=== PATIENT | male | born 1965 | race Two or more races ===

== ENCOUNTER 2016-07-29 19:11 | Emergency (ER) | payer BC ==
--- NOTE | 2016-07-29 20:27 | ED ---
General Adult HPI - General Chief complaint: Dizziness Stated complaint: dizziness/SOB Time Seen by Provider: 07/29/16 19:54 Source: patient, RN notes reviewed, old records reviewed Mode of arrival: ambulatory Limitations: no limitations - History of Present Illness Initial comments: This is a 51-year-old male the ER for evaluation of a few complaints. Patient when he of dizziness palpitations, PVCs and the room spinning around. Patient' s history of high blood pressure, history of PVCs. Patient has been taking all medication as prescribed, neither chest pain or source of breath or congestion, some upper respiratory symptoms and sinus fullness, patient feels a current sinus infection. Again denies fevers no travel history or sick contacts. No significant headaches. No change in medication. Denies drugs or on-call. Patient states a couple times the past week he's does palpitations and PVCs lasting up to 30 seconds, patient is also noticed that during specific times the room has been spinning around, it does resolve if he sits down and closes his eyes. - Related Data Home Medications Medication Instructions Recorded Confirmed B-12 1 ml INJ DIRECTED 12/06/13 07/29/16 Thyroid,Pork [[place] Thyroid] 15 mg PO DIRECTED 12/06/13 07/29/16 Thyroid,Pork [[place] Thyroid] 90 mg PO DAILY 12/06/13 07/29/16 Fluticasone Nasal [place] [Flonase 1 spray EA NOSTRIL HS 07/29/16 07/29/16 Nasal [place]] Hydrochlorothiazide [Hydrodiuril] 25 mg PO DAILY 07/29/16 07/29/16 Loratadine [Claritin] 5 mg PO DAILY 07/29/16 07/29/16 Testosterone [Axiron] 30 mg TRANSDERM MOTH 07/29/16 07/29/16 diphenhydrAMINE HCL [Benadryl] 25 mg PO HS 07/29/16 07/29/16 Allergies Allergy/AdvReac Type Severity Reaction Status Date / Time codeine Allergy Confusion Verified 07/29/16 20:11 metronidazole [From Flagyl] Allergy Hallucinati Verified 07/29/16 20:11 ons Penicillins Allergy Unknown Verified 07/29/16 20:11 Childhood Review of Systems ROS Statement: Those systems with pertinent positive or pertinent negative responses have been documented in the HPI. ROS Other: All systems not noted in ROS Statement are negative. Past Medical History Past Medical History: Blood Disorder, Hypertension, Thyroid Disorder History of Any Multi-Drug Resistant Organisms: None Reported Past Surgical History: Cholecystectomy Past Psychological History: No Psychological Hx Reported Smoking Status: Never smoker Past Alcohol Use History: None Reported Past Drug Use History: None Reported General Exam Limitations: no limitations General appearance: alert, in no apparent distress Head exam: Present: atraumatic, normocephalic, normal inspection Eye exam: Present: normal appearance, PERRL, EOMI, nystagmus (Mild to the right) . Absent: scleral icterus, conjunctival injection, periorbital swelling ENT exam: Present: normal exam, mucous membranes moist Neck exam: Present: normal inspection. Absent: tenderness, meningismus, lymphadenopathy Respiratory exam: Present: normal lung sounds bilaterally. Absent: respiratory distress, wheezes, rales, rhonchi, stridor Cardiovascular Exam: Present: regular rate, normal rhythm, normal heart sounds. Absent: systolic murmur, diastolic murmur, rubs, gallop, clicks GI/Abdominal exam: Present: soft, normal bowel sounds. Absent: distended, tenderness, guarding, rebound, rigid Extremities exam: Present: normal inspection, full ROM, normal capillary refill. Absent: tenderness, pedal edema, joint swelling, calf tenderness Back exam: Present: normal inspection Neurological exam: Present: alert, oriented X3, CN II-XII intact Psychiatric exam: Present: normal affect, normal mood Skin exam: Present: warm, dry, intact, normal color. Absent: rash Course Vital Signs 07/29/16 07/29/16 07/29/16 19:41 20:45 21:45 Temperature 98.2 F Pulse Rate 73 64 67 Respiratory 18 20 20 Rate Blood Pressure 155/108 142/65 128/64 O2 Sat by Pulse 98 97 99 Oximetry 07/29/16 07/29/16 22:44 23:10 Temperature 98.3 F Pulse Rate 81 83 Respiratory 20 20 Rate Blood Pressure 143/89 120/56 O2 Sat by Pulse 99 99 Oximetry EKG Findings - EKG Comments: EKG Findings:: EKG shows normal sinus or mastoid 1, WA 154, QRS 92, QTC 423 Medical Decision Making - Medical Decision Making 51 year with symptoms of vertigo and dizziness, also PVCs. Symptoms appear to be unrelated, patient's EKG is normal, no significant PVCs or here in the emergency room. Patient's neurological exam is also normal, no cerebellar deficits, patient will be discharged home asymptomatic - Lab Data Result diagrams: 07/29/16 20:32 07/29/16 20:32 Lab Results 07/29/16 07/29/16 07/29/16 Range/Units 20:32 20:32 20:32 WBC 5.7 (3.8-10.6) k/uL RBC 5.69 (4.30-5.90) m/uL Hgb 17.1 (13.0-17.5) gm/dL Hct 49.0 (39.0-53.0) % MCV 86.0 (80.0-100.0) fL MCH 30.0 (25.0-35.0) pg MCHC 34.8 (31.0-37.0) g/dL RDW 12.7 (11.5-15.5) % Plt Count 210 (150-450) k/uL Neutrophils % 53 % Lymphocytes % 35 % Monocytes % 6 % Eosinophils % 2 % Basophils % 1 % Neutrophils # 3.0 (1.3-7.7) k/uL Lymphocytes # 2.0 (1.0-4.8) k/uL Monocytes # 0.3 (0-1.0) k/uL Eosinophils # 0.1 (0-0.7) k/uL Basophils # 0.0 (0-0.2) k/uL PT (9.0-12.0) sec INR (<1.1) APTT (22.0-30.0) sec Sodium 141 (137-145) mmol/L Potassium 4.2 (3.5-5.1) mmol/L Chloride 98 (98-107) mmol/L Carbon Dioxide 31 H (22-30) mmol/L Anion Gap 12 mmol/L BUN 14 (9-20) mg/dL Creatinine 1.18 (0.66-1.25) mg/dL Est GFR (MDRD) Af Amer >60 (>60 ml/min/1.73 sqM) Est GFR (MDRD) Non-Af >60 (>60 ml/min/1.73 sqM) Glucose 94 (74-99) mg/dL Calcium 9.6 (8.4-10.2) mg/dL Phosphorus 3.8 (2.5-4.5) mg/dL Magnesium 2.1 (1.6-2.3) mg/dL Total Bilirubin 0.8 (0.2-1.3) mg/dL AST 27 (17-59) U/L ALT 45 (21-72) U/L Alkaline Phosphatase 70 (38-126) U/L Total Creatine Kinase 105 (55-170) U/L CK-MB (CK-2) 2.0 (0.0-2.4) ng/mL CK-MB (CK-2) Rel Index 1.9 Troponin I <0.012 (0.000-0.034) ng/mL Total Protein 7.8 (6.3-8.2) g/dL Albumin 4.7 (3.5-5.0) g/dL TSH 14.700 H (0.465-4.680) mIU/L 07/29/16 Range/Units 20:32 WBC (3.8-10.6) k/uL RBC (4.30-5.90) m/uL Hgb (13.0-17.5) gm/dL Hct (39.0-53.0) % MCV (80.0-100.0) fL MCH (25.0-35.0) pg MCHC (31.0-37.0) g/dL RDW (11.5-15.5) % Plt Count (150-450) k/uL Neutrophils % % Lymphocytes % % Monocytes % % Eosinophils % % Basophils % % Neutrophils # (1.3-7.7) k/uL Lymphocytes # (1.0-4.8) k/uL Monocytes # (0-1.0) k/uL Eosinophils # (0-0.7) k/uL Basophils # (0-0.2) k/uL PT 10.5 (9.0-12.0) sec INR 1.0 (<1.1) APTT 25.8 (22.0-30.0) sec Sodium (137-145) mmol/L Potassium (3.5-5.1) mmol/L Chloride (98-107) mmol/L Carbon Dioxide (22-30) mmol/L Anion Gap mmol/L BUN (9-20) mg/dL Creatinine (0.66-1.25) mg/dL Est GFR (MDRD) Af Amer (>60 ml/min/1.73 sqM) Est GFR (MDRD) Non-Af (>60 ml/min/1.73 sqM) Glucose (74-99) mg/dL Calcium (8.4-10.2) mg/dL Phosphorus (2.5-4.5) mg/dL Magnesium (1.6-2.3) mg/dL Total Bilirubin (0.2-1.3) mg/dL AST (17-59) U/L ALT (21-72) U/L Alkaline Phosphatase (38-126) U/L Total Creatine Kinase (55-170) U/L CK-MB (CK-2) (0.0-2.4) ng/mL CK-MB (CK-2) Rel Index Troponin I (0.000-0.034) ng/mL Total Protein (6.3-8.2) g/dL Albumin (3.5-5.0) g/dL TSH (0.465-4.680) mIU/L Disposition Clinical Impression: Vertigo, PVC (premature ventricular contraction) Disposition: HOME SELF-CARE Condition: Good Instructions: Vertigo (ED), Premature Ventricular Contractions (ED) Referrals: Danielle Valencia MD [Primary Care Provider] - 1-2 days
[2016-07-29] MEDS ORDERED: SODIUM CHLORIDE 0.9% 1,000 ML IV STA (21:15)
[2016-07-29 21:32] LABS: Basophils % (A) 1 %; CH 30.8; CHCM 35.9; Eosinophils # (A) 0.1 k/uL (0-0.7); Eosinophils % (A) 2 %; HGB 17.1 gm/dL (13.0-17.5); Luc # (Auto) 0.24; Luc % (Auto) 4; Lymphocytes % (A) 35 %; MCHC 34.8 g/dL (31.0-37.0); Mean Platelet Volume 7.5; Monocytes # (A) 0.3 k/uL (0-1.0); Monocytes % (A) 6 %; Neutrophils % (A) 53 %; RBC 5.69 m/uL (4.30-5.90); RDW 12.7 % (11.5-15.5); WBC 5.7 k/uL (3.8-10.6); WBC (Perox) 5.65
[2016-07-29 21:42] LABS: Partial Thromboplastin Time 25.8 sec (22.0-30.0); Prothrombin Time 10.5 sec (9.0-12.0)
[2016-07-29 21:43] LABS: ALT 45 U/L (21-72); AST 27 U/L (17-59); Alkaline Phosphatase 70 U/L (38-126); Anion Gap 12 mmol/L; Blood Urea Nitrogen 14 mg/dL (9-20); Calcium 9.6 mg/dL (8.4-10.2); Carbon Dioxide 31 mmol/L (22-30); Chloride 98 mmol/L (98-107); Glucose 94 mg/dL (74-99); Magnesium 2.1 mg/dL (1.6-2.3); Non-African American GFR(MDRD) >60 (>60 ml/min/1.73 sqM); Phosphorous 3.8 mg/dL (2.5-4.5); Potassium 4.2 mmol/L (3.5-5.1); Sodium 141 mmol/L (137-145); Total Bilirubin 0.8 mg/dL (0.2-1.3); Total Protein 7.8 g/dL (6.3-8.2)
[2016-07-29 22:09] LABS: Creatine Kinase 105 U/L (55-170)
[2016-07-29 22:22] LABS: Troponin I <0.012 ng/mL (0.000-0.034)
[2016-07-29 22:44] VITALS: RESP 20
[2016-07-29 23:13] VITALS: BP 120/56; PULSE 83; TEMP 98.3
== END 2016-07-29 23:10 | disposition home or self-care (01) ==
LOC: EC 19:11
DX: I49.3 Ventricular premature depolarization (principal); R42 Dizziness and giddiness; I10 Essential (primary) hypertension; E07.9 Disorder of thyroid, unspecified; Z79.899 Other long term (current) drug therapy; Z88.0 Allergy status to penicillin; Z88.1 Allergy status to other antibiotic agents; Z88.5 Allergy status to narcotic agent
CPT/HCPCS: 36415; 80053; 82550; 82553; 83735; 84100; 84443; 84484; 85025; 85610; 85730; 93005; 96360; 99284

== ENCOUNTER 2016-08-09 17:43 | Emergency (ER) | payer BC ==
[2016-08-09] MEDS ORDERED: SODIUM CHLORIDE 0.9% 1,000 ML IV STA (18:51)
[2016-08-09] MEDS ORDERED: SODIUM CHLORIDE 0.9% 500 ML IV STA (18:51)
--- NOTE | 2016-08-09 18:56 | ED ---
Arrhythmia/Palpitations HPI - General Chief Complaint: Arrhythmia/Palpitations Stated Complaint: NAUSEA, HYPERTENSION, FEELING WEAK, NECK PAIN Time Seen by Provider: 08/09/16 18:51 Source: patient Mode of arrival: wheelchair Limitations: no limitations - History of Present Illness Initial Comments: This is a 51-year-old male who presents with complaints of the onset around 4: 30 this afternoon of a racing heart. He did have elevated heart rate. Got up as high as 145-160. He felt lightheaded and nauseated and sweaty and felt like he was screaming as well as the bathroom. He recently was evaluated for vertigo. He does have a history of thyroid disease and was recently placed on higher levels of his medication. He denies any overt chest pain fevers chills. He also states that he had the slight headache earlier when the symptoms began MD Complaint: rapid heart beat, "heart racing" - Related Data Home Medications Medication Instructions Recorded Confirmed Fluticasone Nasal [place] [Flonase 1 spray EA NOSTRIL BID 07/29/16 08/09/16 Nasal [place]] Testosterone [Axiron] 30 mg TRANSDERM MOTH 07/29/16 08/09/16 Meclizine [Antivert] 25 mg PO TID PRN 08/09/16 08/09/16 Triamterene-Hctz 37.5-25Mg 1 cap PO MOWEFR 08/09/16 08/09/16 [Dyazide 37.5-25 Capsule] predniSONE See Taper PO DAILY 08/09/16 08/09/16 Allergies Allergy/AdvReac Type Severity Reaction Status Date / Time codeine Allergy Confusion Verified 08/09/16 18:53 metronidazole [From Flagyl] Allergy Hallucinati Verified 08/09/16 18:53 ons Penicillins Allergy Unknown Verified 08/09/16 18:53 Childhood Review of Systems ROS Statement: Those systems with pertinent positive or pertinent negative responses have been documented in the HPI. ROS Other: All systems not noted in ROS Statement are negative. Past Medical History Past Medical History: Blood Disorder, Hypertension, Thyroid Disorder History of Any Multi-Drug Resistant Organisms: None Reported Past Surgical History: Cholecystectomy Past Psychological History: No Psychological Hx Reported Smoking Status: Never smoker Past Alcohol Use History: None Reported Past Drug Use History: None Reported General Exam - General Exam Comments Initial Comments: This is a well-developed well-nourished awake alert oriented times 3 male Limitations: no limitations General appearance: alert, in no apparent distress Head exam: Present: atraumatic, normocephalic, normal inspection Eye exam: Present: normal appearance, PERRL, EOMI. Absent: scleral icterus, conjunctival injection, periorbital swelling ENT exam: Present: normal exam, mucous membranes moist Neck exam: Present: normal inspection. Absent: tenderness, meningismus, lymphadenopathy Respiratory exam: Present: normal lung sounds bilaterally. Absent: respiratory distress, wheezes, rales, rhonchi, stridor Cardiovascular Exam: Present: normal rhythm, tachycardia, normal heart sounds. Absent: systolic murmur, diastolic murmur, rubs, gallop, clicks GI/Abdominal exam: Present: soft, normal bowel sounds. Absent: distended, tenderness, guarding, rebound, rigid Extremities exam: Present: normal inspection, full ROM, normal capillary refill. Absent: tenderness, pedal edema, joint swelling, calf tenderness Back exam: Present: normal inspection Neurological exam: Present: alert, oriented X3, CN II-XII intact Psychiatric exam: Present: normal affect, normal mood Skin exam: Present: warm, dry, intact, normal color. Absent: rash Course Vital Signs 08/09/16 08/09/16 08/09/16 18:03 19:07 19:17 Temperature 97.4 F L Pulse Rate 107 H 107 H Pulse Rate [ 112 H Right Radial] Respiratory 17 18 Rate Blood Pressure 160/100 146/95 O2 Sat by Pulse 99 98 Oximetry Medical Decision Making - Medical Decision Making I did reevaluate patient several occasions feeling much improved his heart rate has improved. He will be discharged he is follow-up with his doctor return when necessary - Lab Data Result diagrams: 08/09/16 18:54 08/09/16 18:54 Lab Results 08/09/16 08/09/16 08/09/16 Range/Units 18:54 18:54 18:54 WBC (3.8-10.6) k/uL RBC (4.30-5.90) m/uL Hgb (13.0-17.5) gm/dL Hct (39.0-53.0) % MCV (80.0-100.0) fL MCH (25.0-35.0) pg MCHC (31.0-37.0) g/dL RDW (11.5-15.5) % Plt Count (150-450) k/uL Neutrophils % % Lymphocytes % % Monocytes % % Eosinophils % % Basophils % % Neutrophils # (1.3-7.7) k/uL Lymphocytes # (1.0-4.8) k/uL Monocytes # (0-1.0) k/uL Eosinophils # (0-0.7) k/uL Basophils # (0-0.2) k/uL PT 10.3 (9.0-12.0) sec INR 1.0 (<1.1) APTT 23.3 (22.0-30.0) sec D-Dimer <0.17 (<0.60) mg/L FEU Sodium 141 (137-145) mmol/L Potassium 4.8 (3.5-5.1) mmol/L Chloride 100 (98-107) mmol/L Carbon Dioxide 29 (22-30) mmol/L Anion Gap 12 mmol/L BUN 19 (9-20) mg/dL Creatinine 1.19 (0.66-1.25) mg/dL Est GFR (MDRD) Af Amer >60 (>60 ml/min/1.73 sqM) Est GFR (MDRD) Non-Af >60 (>60 ml/min/1.73 sqM) Glucose 111 H (74-99) mg/dL Calcium 9.7 (8.4-10.2) mg/dL Magnesium 2.1 (1.6-2.3) mg/dL Total Bilirubin 0.6 (0.2-1.3) mg/dL AST 22 (17-59) U/L ALT 37 (21-72) U/L Alkaline Phosphatase 65 (38-126) U/L Total Creatine Kinase 72 (55-170) U/L CK-MB (CK-2) 1.5 (0.0-2.4) ng/mL CK-MB (CK-2) Rel Index 2.1 Troponin I <0.012 (0.000-0.034) ng/mL Total Protein 7.5 (6.3-8.2) g/dL Albumin 4.6 (3.5-5.0) g/dL TSH 1.340 (0.465-4.680) mIU/L 08/09/16 Range/Units 18:54 WBC 10.8 H (3.8-10.6) k/uL RBC 5.48 (4.30-5.90) m/uL Hgb 16.7 (13.0-17.5) gm/dL Hct 48.3 (39.0-53.0) % MCV 88.0 (80.0-100.0) fL MCH 30.4 (25.0-35.0) pg MCHC 34.5 (31.0-37.0) g/dL RDW 13.2 (11.5-15.5) % Plt Count 215 (150-450) k/uL Neutrophils % 80 % Lymphocytes % 12 % Monocytes % 5 % Eosinophils % 0 % Basophils % 0 % Neutrophils # 8.7 H (1.3-7.7) k/uL Lymphocytes # 1.3 (1.0-4.8) k/uL Monocytes # 0.6 (0-1.0) k/uL Eosinophils # 0.0 (0-0.7) k/uL Basophils # 0.0 (0-0.2) k/uL PT (9.0-12.0) sec INR (<1.1) APTT (22.0-30.0) sec D-Dimer (<0.60) mg/L FEU Sodium (137-145) mmol/L Potassium (3.5-5.1) mmol/L Chloride (98-107) mmol/L Carbon Dioxide (22-30) mmol/L Anion Gap mmol/L BUN (9-20) mg/dL Creatinine (0.66-1.25) mg/dL Est GFR (MDRD) Af Amer (>60 ml/min/1.73 sqM) Est GFR (MDRD) Non-Af (>60 ml/min/1.73 sqM) Glucose (74-99) mg/dL Calcium (8.4-10.2) mg/dL Magnesium (1.6-2.3) mg/dL Total Bilirubin (0.2-1.3) mg/dL AST (17-59) U/L ALT (21-72) U/L Alkaline Phosphatase (38-126) U/L Total Creatine Kinase (55-170) U/L CK-MB (CK-2) (0.0-2.4) ng/mL CK-MB (CK-2) Rel Index Troponin I (0.000-0.034) ng/mL Total Protein (6.3-8.2) g/dL Albumin (3.5-5.0) g/dL TSH (0.465-4.680) mIU/L - Radiology Data Radiology results: report reviewed (I did review the imaging a reports no acute findings.), image reviewed Disposition Clinical Impression: Palpitations, Tachycardia Disposition: HOME SELF-CARE Condition: Good Instructions: Palpitations (ED)
[2016-08-09 19:06] LABS: Basophils % (A) 0 %; CH 31.1; CHCM 35.4; Eosinophils % (A) 0 %; HCT 48.3 % (39.0-53.0); HDW 2.88; HGB 16.7 gm/dL (13.0-17.5); Luc # (Auto) 0.19; Luc % (Auto) 2; Lymphocytes # (A) 1.3 k/uL (1.0-4.8); Lymphocytes % (A) 12 %; MCH 30.4 pg (25.0-35.0); MCHC 34.5 g/dL (31.0-37.0); Monocytes # (A) 0.6 k/uL (0-1.0); Monocytes % (A) 5 %; Neutrophils # (A) 8.7 k/uL (1.3-7.7); Neutrophils % (A) 80 %; RBC 5.48 m/uL (4.30-5.90); RDW 13.2 % (11.5-15.5); WBC 10.8 k/uL (3.8-10.6); WBC (Perox) 10.81
[2016-08-09 19:15] LABS: ALT 37 U/L (21-72); AST 22 U/L (17-59); Alkaline Phosphatase 65 U/L (38-126); Anion Gap 12 mmol/L; Blood Urea Nitrogen 19 mg/dL (9-20); Calcium 9.7 mg/dL (8.4-10.2); Carbon Dioxide 29 mmol/L (22-30); Chloride 100 mmol/L (98-107); Glucose 111 mg/dL (74-99); Magnesium 2.1 mg/dL (1.6-2.3); Non-African American GFR(MDRD) >60 (>60 ml/min/1.73 sqM); Potassium 4.8 mmol/L (3.5-5.1); Sodium 141 mmol/L (137-145); Total Bilirubin 0.6 mg/dL (0.2-1.3); Total Protein 7.5 g/dL (6.3-8.2)
[2016-08-09 19:17] VITALS: RESP 18
[2016-08-09 19:20] LABS: Partial Thromboplastin Time 23.3 sec (22.0-30.0); Prothrombin Time 10.3 sec (9.0-12.0)
--- NOTE | 2016-08-09 19:24 | XR ---
EXAMINATION TYPE: XR chest 2V DATE OF EXAM: 08/09/2016 7:08 PM COMPARISON: NONE HISTORY: Dysrhythmia. TECHNIQUE: Frontal and lateral views of the chest are obtained. FINDINGS: Heart and mediastinum are normal. Lungs are clear. Diaphragm is normal. Bony thorax is int act. There are chest leads. IMPRESSION: Normal chest
[2016-08-09 19:29] LABS: Creatine Kinase 72 U/L (55-170)
[2016-08-09 19:42] LABS: Creatine Kinase MB 1.5 ng/mL (0.0-2.4); Troponin I <0.012 ng/mL (0.000-0.034)
[2016-08-09 21:32] VITALS: BP 135/98; PULSE 92; TEMP 97.6
== END 2016-08-09 21:32 | disposition home or self-care (01) ==
LOC: EC 17:43
DX: R00.2 Palpitations (principal); R00.0 Tachycardia, unspecified; R53.1 Weakness; R42 Dizziness and giddiness; R11.0 Nausea; R51 Headache; I10 Essential (primary) hypertension; E07.9 Disorder of thyroid, unspecified; Z79.51 Long term (current) use of inhaled steroids; Z79.52 Long term (current) use of systemic steroids; Z79.899 Other long term (current) drug therapy; Z88.5 Allergy status to narcotic agent; Z88.0 Allergy status to penicillin; Z88.1 Allergy status to other antibiotic agents
CPT/HCPCS: 36415; 71020; 80053; 82550; 82553; 83735; 84443; 84484; 85025; 85379; 85610; 85730; 93005; 96360; 96361; 99285

== ENCOUNTER → 2016-08-31 | Outpatient (CLI) | payer BC ==
--- NOTE | 2016-08-31 15:33 | US ---
EXAMINATION TYPE: US thyroid st tissue head/neck DATE OF EXAM: 08/31/2016 12:35 PM COMPARISON: NONE CLINICAL HISTORY: E03.9 Hypothyroidism, unspecified. on thyroid rx over 16 yrs; symptomatic for both hypo and hyperthyroidism, unbalanced lab values GLAND SIZE: Right Lobe: 5.4 x 1.5 x 1.6 cm Overall Parenchyma: heterogenous Left Lobe: 6.1 x 4.0 x 1.7 cm Overall Parenchyma: heterogeneous Isthmus Thickness: 0.3 cm NODULES RIGHT: # of nodules measured on right: 0 LEFT: # of nodules measured on left: 0 ISTHMUS: # of nodules measured in the isthmus: 0 Bilateral neck scanned, no evidence of lymphadenopathy. Bilateral diffusely heterogeneous tissue. On the left posterior and inferior to the left thyroid lob e there is a 1.3 x 0.6 x 0.9cm soft tissue structure with some vascularity. Atypical location for a lymph node ?possible PROCESSING TECHNOLOGIST? Thyroid gland is heterogeneous appearance and enlarged in size. No discrete solid or cystic nodules w ithin thyroid gland are identified. Inferior to lower pole level left thyroid there is heterogeneous hyperechoic nodule with indistinct margins from left thyroid gland measuring 6 mm in my estimation. IMPRESSION: Thyroid gland is heterogeneous appearance and enlarged in size, I favor 6 mm hyperechoic solid nodule lower pole level left thyroid lobe, parathyroid adenoma felt less likely but not exclude d. Clinical and lab correlation advised to exclude. No greater than 1 cm suspicious solid or cystic n odules are present.
== END | disposition home or self-care (01) ==
LOC: RADUSWWP 12:16
PROVIDERS: ATTEND Internal Medicine Geriatric Medicine
DX: E04.9 Nontoxic goiter, unspecified (principal); E03.9 Hypothyroidism, unspecified
CPT/HCPCS: 76536

== ENCOUNTER 2016-09-10 20:15 | Emergency (ER) | payer BC ==
--- NOTE | 2016-09-10 21:21 | XR ---
EXAMINATION TYPE: XR chest 2V DATE OF EXAM: 09/10/2016 9:11 PM COMPARISON: 08/09/16 HISTORY: Shortness of breath TECHNIQUE: Frontal and lateral views of the chest are obtained. FINDINGS: Scattered senescent parenchymal changes noted. Hyperinflation compatible with COPD. No evidence for infiltrate. No evidence for atelectasis. Heart size is stable. Mediastinal structures are stable and grossly unremarkable. Mild nonspecific hilar prominence. Degenerative changes dorsal spine. IMPRESSION: 1. No evidence for acute pulmonary disease.
[2016-09-10 21:40] LABS: Basophils % (A) 1 %; CHCM 35.8; Eosinophils # (A) 0.1 k/uL (0-0.7); Eosinophils % (A) 1 %; HCT 48.2 % (39.0-53.0); HDW 2.95; HGB 16.9 gm/dL (13.0-17.5); Luc # (Auto) 0.14; Luc % (Auto) 3; Lymphocytes # (A) 1.6 k/uL (1.0-4.8); Lymphocytes % (A) 29 %; MCH 30.5 pg (25.0-35.0); MCV 87.1 fL (80.0-100.0); Mean Platelet Volume 6.5; Monocytes # (A) 0.3 k/uL (0-1.0); Monocytes % (A) 6 %; Neutrophils # (A) 3.3 k/uL (1.3-7.7); Neutrophils % (A) 61 %; RBC 5.53 m/uL (4.30-5.90); RDW 12.9 % (11.5-15.5); WBC 5.5 k/uL (3.8-10.6); WBC (Perox) 5.56
[2016-09-10 21:41] LABS: Appearance,Urine Clear (Clear); Bilirubin,Urine Negative (Negative); Glucose,Urine (UA) Negative (Negative); Ketones,Urine Negative (Negative); Leukocyte Esterase,Urine Negative (Negative); Nitrite,Urine Negative (Negative); PH, Urine 6.5 (5.0-8.0); Protein,Urine Negative (Negative); Specific Gravity,Urine 1.001 (1.001-1.035); UA Billing (MACRO vs. MICRO) CHEM; Urobilinogen,Urine <2.0 mg/dL (<2.0)
[2016-09-10 21:58] LABS: ALT 36 U/L (21-72); AST 24 U/L (17-59); Alkaline Phosphatase 78 U/L (38-126); Anion Gap 11 mmol/L; Blood Urea Nitrogen 7 mg/dL (9-20); Calcium 9.1 mg/dL (8.4-10.2); Carbon Dioxide 27 mmol/L (22-30); Chloride 102 mmol/L (98-107); Glucose 104 mg/dL (74-99); Non-African American GFR(MDRD) >60 (>60 ml/min/1.73 sqM); Sodium 140 mmol/L (137-145); Total Bilirubin 0.8 mg/dL (0.2-1.3); Total Protein 7.6 g/dL (6.3-8.2)
[2016-09-10 22:40] LABS: Creatine Kinase 72 U/L (55-170)
[2016-09-10 22:52] LABS: Creatine Kinase MB 1.2 ng/mL (0.0-2.4); Troponin I <0.012 ng/mL (0.000-0.034)
--- NOTE | 2016-09-10 23:10 | ED ---
General Adult HPI - General Chief complaint: Recheck/Abnormal Lab/Rx Stated complaint: HBP Time Seen by Provider: 09/10/16 20:51 Source: patient Mode of arrival: wheelchair Limitations: no limitations - History of Present Illness Initial comments: This patient is a 51-year-old man who presents to be evaluated because he was having shaking and feeling cold and also noted that his blood pressure was elevated tonight. The patient reports that he has been having some difficulty with hypothyroidism and a low testosterone level. He states that the replacement hormone levels are in the process of being sorted out. He was in his usual state of health tonight when he had a two-hour myofascial massage. Following that he noticed that he was feeling cold and having shaking. He checked his blood pressure at home and vomited it was 180/90, and he was advised to be seen in the ER the patient is denying a fever. He is denying other symptoms of infection, including no sinus congestion, sore throat, cough, headache or stiff neck, cough, dyspnea, or chest pain. In addition no vomiting or diarrhea, urinary symptoms, or rash. The patient states that the symptoms seem to be resolving about the time he was arriving at the emergency department and that he feels relatively well now. -: hour(s) Consistency: now resolved Improves with: none Worsens with: none Associated Symptoms: other Treatments Prior to Arrival: none - Related Data Home Medications Medication Instructions Recorded Confirmed Testosterone [Axiron] 30 mg TRANSDERM DAILY 07/29/16 09/10/16 Iodine Supplement(Unknown) 1 tab PO DAILY 09/10/16 09/10/16 Levothyroxine Sodium [Levoxyl] 75 mcg PO DAILY 09/10/16 09/10/16 Loratadine [Claritin] 10 mg PO DAILY PRN 09/10/16 09/10/16 Melatonin 5 mg PO HS 09/10/16 09/10/16 Prasterone (Dhea)/Calcium Carb 1 tab PO DAILY 09/10/16 09/10/16 [Dhea 50 mg Tablet] diphenhydrAMINE HCL [Benadryl] 25 mg PO DAILY PRN 09/10/16 09/10/16 Allergies Allergy/AdvReac Type Severity Reaction Status Date / Time codeine Allergy Confusion Verified 09/10/16 20:58 metronidazole [From Flagyl] Allergy Hallucinati Verified 09/10/16 20:58 ons Penicillins Allergy Unknown Verified 09/10/16 20:58 Childhood Review of Systems ROS Statement: Those systems with pertinent positive or pertinent negative responses have been documented in the HPI. ROS Other: All systems not noted in ROS Statement are negative. Constitutional: Reports: chills. Denies: fever, weakness Eyes: Denies: vision change ENT: Denies: throat pain, congestion Respiratory: Denies: cough, dyspnea Cardiovascular: Denies: chest pain, palpitations, syncope Gastrointestinal: Denies: abdominal pain, vomiting, diarrhea Genitourinary: Denies: dysuria, frequency, hematuria Musculoskeletal: Denies: back pain Skin: Denies: rash Neurological: Denies: headache, weakness, numbness Past Medical History Past Medical History: Blood Disorder, Hypertension, Thyroid Disorder History of Any Multi-Drug Resistant Organisms: None Reported Past Surgical History: Cholecystectomy Past Psychological History: No Psychological Hx Reported Smoking Status: Never smoker Past Alcohol Use History: None Reported Past Drug Use History: None Reported General Exam Limitations: no limitations General appearance: alert, in no apparent distress Head exam: Present: atraumatic, normocephalic Eye exam: Present: normal appearance. Absent: scleral icterus, conjunctival injection ENT exam: Present: normal oropharynx, mucous membranes moist Neck exam: Present: normal inspection, full ROM. Absent: meningismus Respiratory exam: Present: normal lung sounds bilaterally. Absent: respiratory distress, wheezes, rales, rhonchi, stridor Cardiovascular Exam: Present: regular rate, normal rhythm, normal heart sounds. Absent: systolic murmur, diastolic murmur, rubs, gallop GI/Abdominal exam: Present: soft. Absent: distended, tenderness, guarding, rebound, mass Extremities exam: Present: normal inspection, normal capillary refill. Absent: pedal edema, calf tenderness Back exam: Present: normal inspection. Absent: CVA tenderness (R), CVA tenderness (L) Neurological exam: Present: alert Skin exam: Present: warm, dry, intact, normal color. Absent: rash Course Vital Signs 09/10/16 09/10/16 09/10/16 20:24 21:33 23:20 Temperature 96.8 F L 97.7 F Pulse Rate 99 80 71 Respiratory 16 16 18 Rate Blood Pressure 168/96 146/82 137/86 O2 Sat by Pulse 97 Oximetry Medical Decision Making - Lab Data Result diagrams: 09/10/16 20:30 09/10/16 20:30 Lab Results 09/10/16 09/10/16 09/10/16 Range/Units 20:30 20:30 20:30 WBC 5.5 (3.8-10.6) k/uL RBC 5.53 (4.30-5.90) m/uL Hgb 16.9 (13.0-17.5) gm/dL Hct 48.2 (39.0-53.0) % MCV 87.1 (80.0-100.0) fL MCH 30.5 (25.0-35.0) pg MCHC 35.0 (31.0-37.0) g/dL RDW 12.9 (11.5-15.5) % Plt Count 168 (150-450) k/uL Neutrophils % 61 % Lymphocytes % 29 % Monocytes % 6 % Eosinophils % 1 % Basophils % 1 % Neutrophils # 3.3 (1.3-7.7) k/uL Lymphocytes # 1.6 (1.0-4.8) k/uL Monocytes # 0.3 (0-1.0) k/uL Eosinophils # 0.1 (0-0.7) k/uL Basophils # 0.0 (0-0.2) k/uL Sodium 140 (137-145) mmol/L Potassium 4.0 (3.5-5.1) mmol/L Chloride 102 (98-107) mmol/L Carbon Dioxide 27 (22-30) mmol/L Anion Gap 11 mmol/L BUN 7 L (9-20) mg/dL Creatinine 0.94 (0.66-1.25) mg/dL Est GFR (MDRD) Af Amer >60 (>60 ml/min/1.73 sqM) Est GFR (MDRD) Non-Af >60 (>60 ml/min/1.73 sqM) Glucose 104 H (74-99) mg/dL Calcium 9.1 (8.4-10.2) mg/dL Total Bilirubin 0.8 (0.2-1.3) mg/dL AST 24 (17-59) U/L ALT 36 (21-72) U/L Alkaline Phosphatase 78 (38-126) U/L Total Creatine Kinase (55-170) U/L CK-MB (CK-2) (0.0-2.4) ng/mL CK-MB (CK-2) Rel Index Troponin I (0.000-0.034) ng/mL Total Protein 7.6 (6.3-8.2) g/dL Albumin 4.6 (3.5-5.0) g/dL TSH (0.465-4.680) mIU/L Free T4 (0.78-2.19) ng/dL Urine Color Colorless Urine Appearance Clear (Clear) Urine pH 6.5 (5.0-8.0) Ur Specific [place] 1.001 (1.001-1.035) Urine Protein Negative (Negative) Urine Glucose (UA) Negative (Negative) Urine Ketones Negative (Negative) Urine Blood Negative (Negative) Urine Nitrite Negative (Negative) Urine Bilirubin Negative (Negative) Urine Urobilinogen <2.0 (<2.0) mg/dL Ur Leukocyte Esterase Negative (Negative) 09/10/16 09/10/16 Range/Units 20:30 20:30 WBC (3.8-10.6) k/uL RBC (4.30-5.90) m/uL Hgb (13.0-17.5) gm/dL Hct (39.0-53.0) % MCV (80.0-100.0) fL MCH (25.0-35.0) pg MCHC (31.0-37.0) g/dL RDW (11.5-15.5) % Plt Count (150-450) k/uL Neutrophils % % Lymphocytes % % Monocytes % % Eosinophils % % Basophils % % Neutrophils # (1.3-7.7) k/uL Lymphocytes # (1.0-4.8) k/uL Monocytes # (0-1.0) k/uL Eosinophils # (0-0.7) k/uL Basophils # (0-0.2) k/uL Sodium (137-145) mmol/L Potassium (3.5-5.1) mmol/L Chloride (98-107) mmol/L Carbon Dioxide (22-30) mmol/L Anion Gap mmol/L BUN (9-20) mg/dL Creatinine (0.66-1.25) mg/dL Est GFR (MDRD) Af Amer (>60 ml/min/1.73 sqM) Est GFR (MDRD) Non-Af (>60 ml/min/1.73 sqM) Glucose (74-99) mg/dL Calcium (8.4-10.2) mg/dL Total Bilirubin (0.2-1.3) mg/dL AST (17-59) U/L ALT (21-72) U/L Alkaline Phosphatase (38-126) U/L Total Creatine Kinase 72 (55-170) U/L CK-MB (CK-2) 1.2 (0.0-2.4) ng/mL CK-MB (CK-2) Rel Index 1.7 Troponin I <0.012 (0.000-0.034) ng/mL Total Protein (6.3-8.2) g/dL Albumin (3.5-5.0) g/dL TSH 12.200 H (0.465-4.680) mIU/L Free T4 1.11 (0.78-2.19) ng/dL Urine Color Urine Appearance (Clear) Urine pH (5.0-8.0) Ur Specific [place] (1.001-1.035) Urine Protein (Negative) Urine Glucose (UA) (Negative) Urine Ketones (Negative) Urine Blood (Negative) Urine Nitrite (Negative) Urine Bilirubin (Negative) Urine Urobilinogen (<2.0) mg/dL Ur Leukocyte Esterase (Negative) Disposition Clinical Impression: Hypothyroidism Disposition: HOME SELF-CARE Condition: Fair Instructions: Hypothyroidism (ED) Referrals: Danielle Valencia MD [Primary Care Provider] - 1-2 days
[2016-09-10 23:20] VITALS: BP 137/86; PULSE 71; RESP 18; TEMP 97.7
== END 2016-09-10 23:22 | disposition home or self-care (01) ==
LOC: EC 20:15
DX: E03.9 Hypothyroidism, unspecified (principal); R06.02 Shortness of breath; Z79.899 Other long term (current) drug therapy; Z88.0 Allergy status to penicillin; Z88.1 Allergy status to other antibiotic agents; Z88.5 Allergy status to narcotic agent
CPT/HCPCS: 36415; 71020; 80053; 81003; 82550; 82553; 84439; 84443; 84484; 85025; 87086; 99283

== ENCOUNTER → 2016-09-25 | Outpatient (CLI) | payer BC ==
--- NOTE | 2016-09-25 07:56 | MR ---
EXAMINATION TYPE: MR brain and iac wo/w con DATE OF EXAM: 09/25/2016 7:15 AM COMPARISON: NONE HISTORY: Hearing loss TECHNIQUE: Multiplanar and multispin-echo imaging of the brain was performed both before and after the administr ation of contrast. High-resolution images are obtained of the internal auditory canals performed uti lizing 19 mL intravenous MultiHance contrast. The ventricles, basal cisterns and sulci overlying the cerebral convexities are within normal limits. There is no evidence for midline shift or mass effect. Acute intracranial hemorrhage. There is a sma ll arachnoid cyst anterior portion right middle cranial fossa measuring 2.2 cm. There are a few scattered foci of increased signal within the deep white matter of both cerebral katerine spheres felt to reflect a chronic small vessel ischemic change. High-resolution imaging of the internal auditory canals fails demonstrate evidence for an enhancing a coustic schwannoma or cerebellopontine cistern angle mass. Following contrast administration, there is no evidence for pathologic enhancement or enhancing mass. Uterus retention cyst or polyp right maxillary sinus. IMPRESSION: 1. No evidence of acoustic schwannoma or cerebellopontine angle mass.
== END ==
LOC: RADMRIMAIN 06:28
PROVIDERS: ATTEND Family Medicine
DX: H81.393 Other peripheral vertigo, bilateral (principal)
CPT/HCPCS: 70553; A9577

== ENCOUNTER → 2018-01-28 | Day surgery (SDC) | payer BC ==
[2018-01-26 15:18] VITALS: BMI 30.4
[~2018-01-28] MED LIST: LACTATED RINGERS 1,000 ML IV SCH; PROPOFOL 10 MG/ML 20 ML VIAL IV ONE
[2018-01-28 09:45] VITALS: TEMP 98.1
--- NOTE | 2018-01-28 10:03 | P.GSHP ---
History of Present Illness H&P Date: 01/28/18 Chief Complaint: Colon cancer screening Patient here today for colonoscopy. He has not had 1 previously. No bowel related complaints. No family history of colon cancer Past Medical History Past Medical History: Hypertension, Thyroid Disorder Additional Past Medical History / Comment(s): exposure to mold "mold sickness" has caused vertigo, palpitations, used to take BP med-no longer needed History of Any Multi-Drug Resistant Organisms: None Reported Past Surgical History: Cholecystectomy Additional Past Surgical History / Comment(s): EGD Past Anesthesia/Blood Transfusion Reactions: No Reported Reaction Smoking Status: Never smoker - Past Family History Mother Family Medical History: No Reported History Medications and Allergies Home Medications Medication Instructions Recorded Confirmed Type Coconut Charcoal 1 tab PO DAILY 01/26/18 01/28/18 History Cyanocobalamin [Vitamin B-12] 500 mcg PO DAILY 01/26/18 01/28/18 History Mindwise 1 tab PO DAILY 01/26/18 01/28/18 History Red Yeast Rice 600 mg PO DAILY 01/26/18 01/28/18 History Thyroid,Pork [[place] Thyroid] 90 mg PO DAILY 01/26/18 01/28/18 History Thyromin 1 tab PO DAILY 01/26/18 01/28/18 History Allergies Allergy/AdvReac Type Severity Reaction Status Date / Time codeine Allergy Confusion Verified 01/28/18 09:35 metronidazole [From Flagyl] Allergy Hallucinati Verified 01/28/18 09:35 ons Penicillins Allergy Unknown Verified 01/28/18 09:35 Childhood Surgical - Exam Vital Signs Temp Pulse Resp BP Pulse Ox 98.1 F 81 18 131/76 97 01/28/18 09:44 01/28/18 09:44 01/28/18 09:44 01/28/18 09:44 01/28/18 09:44 Physical exam: General: Well-developed, well-nourished HEENT: Normocephalic, sclerae nonicteric Abdomen: Nontender, nondistended Extremities: No edema Neuro: Alert and oriented Assessment and Plan (1) Colon cancer screening Narrative/Plan: Will proceed with colonoscopy at this time Current Visit: Yes Status: Acute Code(s): Z12.11 - ENCOUNTER FOR SCREENING FOR MALIGNANT NEOPLASM OF COLON SNOMED Code(s): 616723264
--- NOTE | 2018-01-28 10:14 | P.PCN ---
Date of Procedure: 01/28/18 Procedure(s) Performed: PREOPERATIVE DIAGNOSIS: Colon cancer screening POSTOPERATIVE DIAGNOSIS: Normal exam PROCEDURE: Colonoscopy ANESTHESIA: MAC SURGEON: Carlos Hager M.D. SPECIMENS: None ENDOSCOPIC PROCEDURE: The patient was placed on the endoscopy table in the left decubitus position. The Olympus colonoscope was inserted into the anus and passed under direct visualization to the base of the cecum. The appendiceal orifice was visualized. From that point the scope was slowly withdrawn inspecting all surfaces carefully. There were no neoplastic inflammatory or polypoid lesions throughout the cecum, ascending, transverse, descending, sigmoid and rectum. There was no diverticulosis noted. Digital rectal examination was normal. The patient was taken to the recovery room in stable condition per anesthesia guidelines. RECOMMENDATIONS: Increase fiber. Follow-up colonoscopy 10 years.
[2018-01-28 10:19] VITALS: RESP 16
[2018-01-28 10:28] VITALS: BP 134/88; PULSE 69
== END ==
LOC: ORWHC2ENDO 09:15
PROVIDERS: ATTEND Surgery
DX: Z12.11 Encounter for screening for malignant neoplasm of colon (principal); I10 Essential (primary) hypertension; E07.9 Disorder of thyroid, unspecified; Z90.49 Acquired absence of other specified parts of digestive tract; Z79.890 Hormone replacement therapy; Z79.899 Other long term (current) drug therapy; Z88.5 Allergy status to narcotic agent; Z88.0 Allergy status to penicillin; Z88.8 Allergy status to other drugs, medicaments and biological substances
CPT/HCPCS: J2704; G0121

== ENCOUNTER 2018-03-05 13:24 | Emergency (ER) | payer BC ==
[2018-03-05 13:33] VITALS: RESP 18
[2018-03-05] MEDS ORDERED: SODIUM CHLORIDE 0.9% 1,000 ML IV ONE (13:54)
--- NOTE | 2018-03-05 13:59 | ED ---
Dizziness HPI - General Chief Complaint: Dizziness Stated Complaint: Dizziness Time Seen by Provider: 03/05/18 13:40 Source: patient Mode of arrival: ambulatory Limitations: no limitations - History of Present Illness Initial Comments: 53-year-old male presenting with lightheadedness and generalized weakness. The patient states that it started on Wednesday when he had a severe generalized headache abdominal cramping and multiple episodes of diarrhea. He states since then the symptoms have resolved but he has felt rundown and lightheaded upon standing. He denies any chest pain, shortness of breath, fever. The patient admits to chills. He states currently he has no nausea and his diarrhea has resolved. He states he is on natural supplements from a homeopathic doctor for his mold exposure and possible adrenal fatigue (neither of which have been diagnosed by a physician.) patient states he started taking a supplement called "mixed greens" on Wednesday but otherwise denies any other new medications. He denies focal weakness or numbness. - Related Data Home Medications Medication Instructions Recorded Confirmed Coconut Charcoal 1 tab PO DAILY 01/26/18 01/28/18 Cyanocobalamin [Vitamin B-12] 500 mcg PO DAILY 01/26/18 03/05/18 Mindwise 1 tab PO DAILY 01/26/18 01/28/18 Red Yeast Rice 600 mg PO DAILY 01/26/18 03/05/18 Thyroid,Pork [[place] Thyroid] 90 mg PO DAILY 01/26/18 03/05/18 Thyromin 1 tab PO DAILY 01/26/18 03/05/18 Naphazoline HCl/Pheniramine 1 drop BOTH EYES DAILY 03/05/18 03/05/18 [Visine-A Allergy [facility]] [place]-3 Fatty Acids [[place]-3] 1,000 mg PO DAILY 03/05/18 03/05/18 Allergies Allergy/AdvReac Type Severity Reaction Status Date / Time gluten Allergy Unknown Verified 03/05/18 14:56 codeine Allergy Confusion Verified 03/05/18 14:56 metronidazole [From Flagyl] Allergy Hallucinati Verified 03/05/18 14:56 ons Penicillins Allergy Unknown Verified 03/05/18 14:56 Childhood Review of Systems ROS Statement: Those systems with pertinent positive or pertinent negative responses have been documented in the HPI. Review of Systems Constitutional: Denies fever, chills. Positive fatigue and light headedness. Eyes: Denies change in vision, Denies pain Ears, nose, mouth, throat: Denies headaches, Denies sore throat Cardiovascular: Denies chest pain. Denies palpitations Respiratory: Denies shortness of breath, Denies cough Gastrointestinal: Denies abdominal pain. Positive nausea and diarrhea. Genitourinary: Denies hematuria, Denies infections Musculoskeletal: Denies pain, Denies swelling Integumentary: Denies rash Neurological: Positive headache, focal weakness, focal numbness Psychiatric: Denies anxiety, Denies depression Hematologic/Lymphatic: Denies easy bleeding or bruising ROS Other: All systems not noted in ROS Statement are negative. Past Medical History Past Medical History: Thyroid Disorder Additional Past Medical History / Comment(s): exposure to mold "mold sickness" has caused vertigo, palpitations History of Any Multi-Drug Resistant Organisms: None Reported Past Surgical History: Cholecystectomy Additional Past Surgical History / Comment(s): EGD Past Anesthesia/Blood Transfusion Reactions: No Reported Reaction Past Psychological History: No Psychological Hx Reported Smoking Status: Never smoker Past Alcohol Use History: None Reported Past Drug Use History: None Reported - Past Family History Mother Family Medical History: No Reported History General Exam - General Exam Comments Initial Comments: General: Awake, alert, No acute Distress HENT: Normocephalic. Atraumatic Eyes: PERRL. EOMI. No scleral icterus. No injected conjunctiva Neck: Full ROM Chest/Lungs: Clear to auscultation bilaterally. No wheezing, rhonchi, or rales Cardiac: Regular rate, rhythm. No murmurs or rubs Abdomen/GI: Soft, nontender, nondistended. No rebound, guarding, or rigidity. Musculoskeletal: Full ROM Skin: Warm, dry, intact Neurologic: A/Ox3, no weakness, no sensory deficit, no abnormal gait, no coordination deficit. Finger to nose intact. Heel to razo intact. No pronator drift. No meningeal signs. Limitations: no limitations Course Vital Signs 03/05/18 13:29 Temperature 98.3 F Pulse Rate 94 Respiratory 18 Rate Blood Pressure 145/89 O2 Sat by Pulse 100 Oximetry EKG Findings - EKG Comments: EKG Findings:: EKG shows normal sinus rhythm at a rate of 86 bpm. AL interval 150 ms. QRS duration 86 ms. QT/QTC 358/[address] segment elevation, depression. No prolonged QT/QTc or AL interval. No dysrythmia noted. Medical Decision Making - Medical Decision Making 53 yoM presenting with light headedness and generalized weakness. ON initial exam the patient is awake, alert, and in NAD. VSS. Patient has no CASTRO, meningeal signs, or neuro deficit on exam. No indication for CT imaging or LP. He denied chest pain. He was not having any abdominal pain or chest pain on arrival. No indication for imaging of abdomen. Patient felt improved after 1L of IVF. His TSH was elevated and T4 was slightly below normal at 0.63. Discussed with patient who would like to follow up with his primary care physician on Wednesday regarding his thyroid medication regimen. He is well appearing and ambulating without distress. No further emergent workup indicated. The patient was given return to ED instructions. They were instructed to follow up with their primary care provider. Stable for discharge at this time. - Lab Data Result diagrams: 03/05/18 14:06 03/05/18 14:06 Lab Results 03/05/18 03/05/18 03/05/18 Range/Units 13:36 14:06 14:06 WBC 7.7 (3.8-10.6) k/uL RBC 5.68 (4.30-5.90) m/uL Hgb 16.8 (13.0-17.5) gm/dL Hct 49.4 (39.0-53.0) % MCV 87.0 (80.0-100.0) fL MCH 29.6 (25.0-35.0) pg MCHC 34.1 (31.0-37.0) g/dL RDW 12.7 (11.5-15.5) % Plt Count 183 (150-450) k/uL Neutrophils % 79 % Lymphocytes % 14 % Monocytes % 5 % Eosinophils % 1 % Basophils % 1 % Neutrophils # 6.0 (1.3-7.7) k/uL Lymphocytes # 1.0 (1.0-4.8) k/uL Monocytes # 0.4 (0-1.0) k/uL Eosinophils # 0.1 (0-0.7) k/uL Basophils # 0.0 (0-0.2) k/uL Sodium 141 (137-145) mmol/L Potassium 4.6 (3.5-5.1) mmol/L Chloride 105 (98-107) mmol/L Carbon Dioxide 28 (22-30) mmol/L Anion Gap 8 mmol/L BUN 15 (9-20) mg/dL Creatinine 0.98 (0.66-1.25) mg/dL Est GFR (CKD-EPI)AfAm >90 (>60 ml/min/1.73 sqM) Est GFR (CKD-EPI)NonAf 89 (>60 ml/min/1.73 sqM) Glucose 89 (74-99) mg/dL Calcium 9.4 (8.4-10.2) mg/dL Magnesium 2.0 (1.6-2.3) mg/dL Troponin I (0.000-0.034) ng/mL TSH 5.140 H (0.465-4.680) mIU/L Free T4 0.63 L (0.78-2.19) ng/dL Urine Color Urine Appearance (Clear) Urine pH (5.0-8.0) Ur Specific [place] (1.001-1.035) Urine Protein (Negative) Urine Glucose (UA) (Negative) Urine Ketones (Negative) Urine Blood (Negative) Urine Nitrite (Negative) Urine Bilirubin (Negative) Urine Urobilinogen (<2.0) mg/dL Ur Leukocyte Esterase (Negative) Urine Opiates Screen Not Detected (NotDetected) Ur Oxycodone Screen Not Detected (NotDetected) Urine Methadone Screen Not Detected (NotDetected) Ur Propoxyphene Screen Not Detected (NotDetected) Ur Barbiturates Screen Not Detected (NotDetected) U Tricyclic Antidepress Not Detected (NotDetected) Ur Phencyclidine Scrn Not Detected (NotDetected) Ur Amphetamines Screen Not Detected (NotDetected) U Methamphetamines Scrn Not Detected (NotDetected) U Benzodiazepines Scrn Not Detected (NotDetected) Urine Cocaine Screen Not Detected (NotDetected) U Marijuana (THC) Screen Not Detected (NotDetected) 03/05/18 03/05/18 Range/Units 14:06 14:06 WBC (3.8-10.6) k/uL RBC (4.30-5.90) m/uL Hgb (13.0-17.5) gm/dL Hct (39.0-53.0) % MCV (80.0-100.0) fL MCH (25.0-35.0) pg MCHC (31.0-37.0) g/dL RDW (11.5-15.5) % Plt Count (150-450) k/uL Neutrophils % % Lymphocytes % % Monocytes % % Eosinophils % % Basophils % % Neutrophils # (1.3-7.7) k/uL Lymphocytes # (1.0-4.8) k/uL Monocytes # (0-1.0) k/uL Eosinophils # (0-0.7) k/uL Basophils # (0-0.2) k/uL Sodium (137-145) mmol/L Potassium (3.5-5.1) mmol/L Chloride (98-107) mmol/L Carbon Dioxide (22-30) mmol/L Anion Gap mmol/L BUN (9-20) mg/dL Creatinine (0.66-1.25) mg/dL Est GFR (CKD-EPI)AfAm (>60 ml/min/1.73 sqM) Est GFR (CKD-EPI)NonAf (>60 ml/min/1.73 sqM) Glucose (74-99) mg/dL Calcium (8.4-10.2) mg/dL Magnesium (1.6-2.3) mg/dL Troponin I <0.012 (0.000-0.034) ng/mL TSH (0.465-4.680) mIU/L Free T4 (0.78-2.19) ng/dL Urine Color Colorless Urine Appearance Clear (Clear) Urine pH 6.0 (5.0-8.0) Ur Specific [place] 1.004 (1.001-1.035) Urine Protein Negative (Negative) Urine Glucose (UA) Negative (Negative) Urine Ketones Negative (Negative) Urine Blood Negative (Negative) Urine Nitrite Negative (Negative) Urine Bilirubin Negative (Negative) Urine Urobilinogen <2.0 (<2.0) mg/dL Ur Leukocyte Esterase Negative (Negative) Urine Opiates Screen (NotDetected) Ur Oxycodone Screen (NotDetected) Urine Methadone Screen (NotDetected) Ur Propoxyphene Screen (NotDetected) Ur Barbiturates Screen (NotDetected) U Tricyclic Antidepress (NotDetected) Ur Phencyclidine Scrn (NotDetected) Ur Amphetamines Screen (NotDetected) U Methamphetamines Scrn (NotDetected) U Benzodiazepines Scrn (NotDetected) Urine Cocaine Screen (NotDetected) U Marijuana (THC) Screen (NotDetected) Disposition Clinical Impression: Light headedness, Hypothyroidism Disposition: HOME SELF-CARE Condition: Good Instructions: Dizziness (ED), Dehydration (ED), Hypothyroidism (ED) Is patient prescribed a controlled substance at d/c from ED?: No
[2018-03-05 14:20] LABS: Basophils % (A) 1 %; Eosinophils # (A) 0.1 k/uL (0-0.7); Eosinophils % (A) 1 %; HCT 49.4 % (39.0-53.0); HGB 16.8 gm/dL (13.0-17.5); Lymphocytes % (A) 14 %; MCH 29.6 pg (25.0-35.0); MCHC 34.1 g/dL (31.0-37.0); Mean Platelet Volume 7.3; Monocytes # (A) 0.4 k/uL (0-1.0); Monocytes % (A) 5 %; Neutrophils % (A) 79 %; Platelet Count 183 k/uL (150-450); RBC 5.68 m/uL (4.30-5.90); RDW 12.7 % (11.5-15.5); WBC 7.7 k/uL (3.8-10.6)
[2018-03-05 14:28] LABS: Appearance,Urine Clear (Clear); Bilirubin,Urine Negative (Negative); Blood,Urine Negative (Negative); Color,Urine Colorless; Glucose,Urine (UA) Negative (Negative); Ketones,Urine Negative (Negative); Leukocyte Esterase,Urine Negative (Negative); Nitrite,Urine Negative (Negative); Protein,Urine Negative (Negative); Specific Gravity,Urine 1.004 (1.001-1.035); Urobilinogen,Urine <2.0 mg/dL (<2.0)
[2018-03-05 14:29] LABS: Anion Gap 8 mmol/L; Blood Urea Nitrogen 15 mg/dL (9-20); Calcium 9.4 mg/dL (8.4-10.2); Carbon Dioxide 28 mmol/L (22-30); Chloride 105 mmol/L (98-107); Glucose 89 mg/dL (74-99); Potassium 4.6 mmol/L (3.5-5.1); Sodium 141 mmol/L (137-145)
--- NOTE | 2018-03-05 14:29 | XR ---
EXAMINATION TYPE: XR chest 2V DATE OF EXAM: 03/05/2018 COMPARISON: 09/10/2016 HISTORY: Weakness TECHNIQUE: Frontal and lateral views of the chest are obtained. FINDINGS: Heart and mediastinum are normal. Lungs are clear. Diaphragm is normal. Bony thorax appear s normal. IMPRESSION: Normal chest. No change.
[2018-03-05 14:41] LABS: Amphetamine Screen,Urine Not Detected (NotDetected); Barbiturate Screen,Urine Not Detected (NotDetected); Benzodiazepines Screen,Urine Not Detected (NotDetected); Cocaine Screen,Urine Not Detected (NotDetected); Methadone Screen, Urine Not Detected (NotDetected); Opiate Screen,Urine Not Detected (NotDetected); Oxycodone Screen, Urine Not Detected (NotDetected); Phencyclidine Screen,Urine Not Detected (NotDetected); Tricyclic Antidepressant,Urine Not Detected (NotDetected); Urn Cannabinoid Scrn Not Detected (NotDetected)
[2018-03-05 15:27] LABS: T4, Free (Free Thyroxine) 0.63 ng/dL (0.78-2.19)
[2018-03-05 16:00] VITALS: TEMP 97.9
[2018-03-05 16:06] VITALS: BP 139/92; PULSE 71
== END 2018-03-05 16:06 | disposition home or self-care (01) ==
LOC: EC 13:24
DX: E03.9 Hypothyroidism, unspecified (principal); R42 Dizziness and giddiness; R68.83 Chills (without fever); Z88.0 Allergy status to penicillin; Z88.1 Allergy status to other antibiotic agents; Z88.5 Allergy status to narcotic agent; Z91.018 Allergy to other foods; Z79.899 Other long term (current) drug therapy
CPT/HCPCS: 36415; 71046; 80048; 80306; 81003; 83735; 84439; 84443; 84484; 85025; 93005; 96360; 99284

== ENCOUNTER → 2018-04-04 | Outpatient (CLI) | payer BC ==
--- NOTE | 2018-04-04 11:10 | ECHOS ---
STRESS ECHOCARDIOGRAM DATE OF SERVICE: 04/04/2018 INDICATIONS: Jaw pain, palpitations. MEDICATIONS: BASELINE HEART RATE: 79 BASELINE BLOOD PRESSURE: 134/57 MAXIMUM HEART RATE: 151 MAXIMUM BLOOD PRESSURE: 194/82 85% MPHR: 143 100% MPHR: 168 METS: 10.1 MAXIMUM STAGE REACHED: III TOTAL EXERCISE TIME: 9 minutes CLINICAL INFORMATION: Baseline rhythm is sinus mechanism, rate of 79, normal axis and intervals, poor R progression. Baseline blood pressure 134/57 mmHg. Patient exercised on Patel protocol for 9 minutes reaching peak rate 151 beats per minute which is equal to 90% maximum predicted heart rate. Peak blood pressure 194/82 mmHg. Test was terminated secondary to fatigue. There was no chest pain. Electrocardiograph monitoring revealed no evidence of diagnostic ischemic ST deviation. Baseline echocardiogram revealed normal wall thickening and motion. At peak exercise, there was normal wall motion augmentation with no hypokinesis or dyskinesis. CONCLUSION: 1. Good exercise tolerance with normal electrocardiograph response to exercise. 2. Normal stress echocardiogram with no evidence of stress induced ischemia. MMODL / IJN: [id number] /
== END | disposition home or self-care (01) ==
LOC: RADNMMAIN 09:52
PROVIDERS: ATTEND Family Medicine
DX: R68.84 Jaw pain (principal)
CPT/HCPCS: 93351

== ENCOUNTER → 2018-07-15 | Outpatient (CLI) | payer BC ==
[2018-07-15 09:10] LABS: HCT 47.4 % (39.0-53.0); HGB 16.6 gm/dL (13.0-17.5); MCH 30.8 pg (25.0-35.0); MCV 87.8 fL (80.0-100.0); Mean Platelet Volume 6.4; Platelet Count 183 k/uL (150-450); RDW 12.9 % (11.5-15.5); WBC 4.4 k/uL (3.8-10.6)
[2018-07-15 16:39] LABS: Vitamin D 25 Hydroxy 39.6 ng/mL (30.0-100.0)
[2018-07-15 16:55] LABS: Iron Saturation 35.12 (15.00-50.00)
[2018-07-15 17:26] LABS: Thyroid Peroxidase Antibodies 9205.4 U/mL (0.0-60.0)
== END | disposition home or self-care (01) ==
LOC: LABWHC1 08:25
PROVIDERS: ATTEND Internal Medicine Endocrinology, Diabetes & Metabolism
DX: R53.83 Other fatigue (principal)
CPT/HCPCS: 36415; 82306; 82533; 82607; 82728; 82746; 83540; 83550; 84146; 84439; 84443; 84481; 84482; 84630; 85027; 86376; 86800

== ENCOUNTER → 2018-08-22 | Outpatient (CLI) | payer BC ==
[2018-08-22 08:08] LABS: HCT 48.8 % (39.0-53.0); HGB 15.9 gm/dL (13.0-17.5); MCH 28.8 pg (25.0-35.0); MCHC 32.7 g/dL (31.0-37.0); MCV 88.3 fL (80.0-100.0); Mean Platelet Volume 6.8; Platelet Count 189 k/uL (150-450); RBC 5.53 m/uL (4.30-5.90); RDW 12.6 % (11.5-15.5); WBC 4.7 k/uL (3.8-10.6)
[2018-08-22 16:59] LABS: T4, Free (Free Thyroxine) 0.9 ng/dL (0.80-1.80)
[2018-08-22 17:19] LABS: Iron Saturation 34.21 (15.00-50.00)
[2018-08-22 17:27] LABS: Vitamin D 25 Hydroxy 41.1 ng/mL (30.0-100.0)
[2018-08-22 17:52] LABS: Folate, Serum 12.3 ng/mL; Thyroid Peroxidase Antibodies 8339.6 U/mL (0.0-60.0)
[2018-08-22 19:12] LABS: Thyroglobulin 1.75 ng/mL (1.60-59.90)
== END | disposition home or self-care (01) ==
LOC: LABWHC1 07:10
PROVIDERS: ATTEND Internal Medicine Endocrinology, Diabetes & Metabolism
DX: E03.8 Other specified hypothyroidism (principal); R53.83 Other fatigue
CPT/HCPCS: 36415; 82306; 82525; 82533; 82607; 82728; 82746; 83540; 83550; 84146; 84255; 84432; 84439; 84443; 84481; 84482; 84630; 85027; 86376

== ENCOUNTER → 2018-11-21 | Outpatient (CLI) | payer BC ==
[2018-11-21 08:05] LABS: Basophils % (A) 0 %; Eosinophils # (A) 0.1 k/uL (0-0.7); Eosinophils % (A) 2 %; HCT 45.9 % (39.0-53.0); HGB 15.6 gm/dL (13.0-17.5); Lymphocytes # (A) 1.6 k/uL (1.0-4.8); Lymphocytes % (A) 35 %; MCV 85.2 fL (80.0-100.0); Mean Platelet Volume 7.5; Monocytes # (A) 0.2 k/uL (0-1.0); Monocytes % (A) 5 %; Neutrophils # (A) 2.6 k/uL (1.3-7.7); Neutrophils % (A) 56 %; Platelet Count 179 k/uL (150-450); RBC 5.38 m/uL (4.30-5.90); WBC 4.6 k/uL (3.8-10.6)
[2018-11-21 11:40] LABS: Erythrocyte Sedimentation Rate 2 mm/hr (0-15)
[2018-11-21 12:25] LABS: Iron Saturation 39.13 (15.00-50.00)
[2018-11-21 12:27] LABS: Protein, Total 6.2 g/dL (6.2-8.2)
[2018-11-21 12:43] LABS: ALT 28 U/L (10-49); AST 21 U/L (14-35); Alkaline Phosphatase 64 U/L (41-126); BUN/Creat Ratio 10.91 Ratio (12.00-20.00); C Reactive Protein <0.4 mg/dL (0.0-0.8); Calcium 9.2 mg/dL (8.7-10.3); Carbon Dioxide 27.7 mmol/L (21.6-31.8); Chloride 108 mmol/L (96-109); Creatine Kinase 145 U/L (35-257); Glucose 98 mg/dL (70-110); LDH 182 U/L (120-246); Potassium 4.4 mmol/L (3.5-5.5); Sodium 141 mmol/L (135-145); Total Bilirubin 0.6 mg/dL (0.3-1.2); Total Protein 6.2 g/dL (6.2-8.2)
[2018-11-21 13:08] LABS: EBV-EA (IgG) 1.2 AI; EBV-EBNA(IgG) >8.0 AI; EBV-VCA (IgG) 7.1 AI
[2018-11-22 10:02] LABS: Albumin 4.14 g/dL (3.80-4.90); Gamma Globulin 0.75 g/dL (0.70-1.50)
== END | disposition home or self-care (01) ==
LOC: LABWHC1 07:18
PROVIDERS: ATTEND Family Medicine
DX: R53.83 Other fatigue (principal); I10 Essential (primary) hypertension; D72.819 Decreased white blood cell count, unspecified; E03.8 Other specified hypothyroidism
CPT/HCPCS: 36415; 80053; 82533; 82550; 82728; 83516; 83540; 83550; 83615; 84165; 85025; 85652; 86140; 86334; 86618; 86663; 86664; 86665

== ENCOUNTER → 2018-12-05 | Outpatient (CLI) | payer BC ==
--- NOTE | 2018-12-06 07:12 | US ---
EXAMINATION TYPE: US thyroid st tissue head/neck DATE OF EXAM: 12/05/2018 COMPARISON: US CLINICAL HISTORY: E04.1 thyroid nodule. F/U previous GLAND SIZE: Right Lobe: 5.2 x 1.7 x 1.7 cm Overall Parenchyma: heterogenous Left Lobe: 4.5 x 1.2 x 1.5 cm Overall Parenchyma: heterogeneous Isthmus Thickness: 0.6 cm NODULES LEFT: # of nodules measured on left: 1 1. 0.6 X 0.6 x 0.5 cm echogenic solid nodule just inferior to left thyroid as seen on previous exam . This nodule is wider than tall and shows intranodular vascularity. Prior size: 1.3 x 0.6 x 0.9 cm Bilateral neck scanned, no evidence of lymphadenopathy. Echogenic nodule inferior to left thyroid as seen on previous exam, smaller in size when compared to previous. IMPRESSION: Solitary left thyroid nodule in an overall heterogenous and slightly enlarged thyroid gland. This ling ears smaller than the prior exam, possibly due to obliquity. No increase in size is seen.
== END | disposition home or self-care (01) ==
LOC: RADUSWWP 15:50
PROVIDERS: ATTEND Family Medicine
DX: E04.1 Nontoxic single thyroid nodule (principal)
CPT/HCPCS: 76536

== ENCOUNTER → 2019-05-30 | Outpatient (CLI) | payer BC ==
--- NOTE | 2019-05-30 13:48 | MR ---
EXAMINATION TYPE: MR brain wo/w con DATE OF EXAM: 05/30/2019 COMPARISON: Prior MRI brain September 25, 2016 HISTORY: Dizziness, possible Arnold Chiari malformation TECHNIQUE: Multiplanar, multisequence images of the brain and brainstem is performed without and with IV contras t, utilizing 10 mL intravenous Gadavist . FINDINGS: Diffusion weighted images demonstrate no evidence of a recent infarct or other diffusion ab normality. There is no worrisome extra-axial fluid collection. The ventricular system and cisternal spaces are normal in size and appearance. The brain volume is age appropriate. Occasional tiny focu s of T2 hyperintensity is seen throughout the white matter bilaterally. Less than 8 small scattered l esions are seen for reference there are 3-4 scattered lesions under 4 mm axial image 19 again identif ied throughout the bilateral frontal and parietal regions. Focal prominence of CSF anterior aspect ri ght middle cranial fossa shows crossing vessel consistent with asymmetric right temporal lobe atrophy . No significant change from prior. Midline structures demonstrate normal morphology. The craniocervical junction appears within normal limits. No greater than 5 mm inferior descent to suggest Chiari type I malformation. Post contrast i mages demonstrate no abnormal enhancement. The dural venous sinuses appear patent. There is redemonst ration of mild to moderate mucosal thickening with 1.4 cm mucous retention cyst or polyp in the anter ior right maxillary sinus. There is additional 1.1 cm mucous retention cyst or polyp in the left aspe ct sphenoid sinus anteriorly axial image 8 redemonstrated. Mild mucosal thickening anterior ethmoid s inuses bilaterally again seen. Globes are intact bilaterally. No suspicious fluid signal bilateral ma stoid air cells. IMPRESSION: Stable mild to minimal nonspecific white matter changes presumed on the basis of product of chronic small vessel ischemic change in patient of this age. Stable chronic paranasal sinus diseas e as detailed above. No significant change from prior MRI. No Chiari type I malformation identified.
== END ==
LOC: RADMRIMAIN 11:47
PROVIDERS: ATTEND Psychiatry & Neurology Neurology
DX: I67.82 Cerebral ischemia (principal)
CPT/HCPCS: 70553; A9585

== ENCOUNTER 2019-10-04 19:07 | Emergency (ER) | payer BC ==
[2019-10-04 21:16] LABS: ALT 42 U/L (4-49); AST 35 U/L (17-59); African American GFR (CKD) >90 (>60 ml/min/1.73 sqM); Albumin 4.5 g/dL (3.5-5.0); Alkaline Phosphatase 58 U/L (38-126); Anion Gap 7 mmol/L; Blood Urea Nitrogen 12 mg/dL (9-20); Calcium 9.6 mg/dL (8.4-10.2); Carbon Dioxide 27 mmol/L (22-30); Chloride 104 mmol/L (98-107); Creatine Kinase 230 U/L (55-170); Glucose 93 mg/dL (74-99); Magnesium 2.1 mg/dL (1.6-2.3); Non-African American GFR(CKD) 81 (>60 ml/min/1.73 sqM); Phosphorus 3.2 mg/dL (2.5-4.5); Potassium 4.3 mmol/L (3.5-5.1); Sodium 138 mmol/L (137-145); Total Bilirubin 0.7 mg/dL (0.2-1.3); Total Protein 7.1 g/dL (6.3-8.2)
[2019-10-04 21:21] LABS: Partial Thromboplastin Time 25.2 sec (22.0-30.0); Prothrombin Time 10.2 sec (9.0-12.0)
[2019-10-04 21:29] LABS: Creatine Kinase MB 3.6 ng/mL (0.0-2.4); Troponin I <0.012 ng/mL (0.000-0.034)
[2019-10-04 21:33] LABS: T4, Free (Free Thyroxine) 0.67 ng/dL (0.78-2.19)
[2019-10-04 21:40] LABS: Basophils % (A) 1 %; Eosinophils # (A) 0.1 k/uL (0-0.7); Eosinophils % (A) 2 %; HGB 15.9 gm/dL (13.0-17.5); Lymphocytes # (A) 1.6 k/uL (1.0-4.8); Lymphocytes % (A) 32 %; MCH 30.5 pg (25.0-35.0); MCHC 34.5 g/dL (31.0-37.0); MCV 88.3 fL (80.0-100.0); Mean Platelet Volume 7.5; Monocytes # (A) 0.3 k/uL (0-1.0); Monocytes % (A) 6 %; Neutrophils # (A) 2.8 k/uL (1.3-7.7); Neutrophils % (A) 57 %; Platelet Count 193 k/uL (150-450); RBC 5.21 m/uL (4.30-5.90); RDW 12.4 % (11.5-15.5); WBC 4.9 k/uL (3.8-10.6)
--- NOTE | 2019-10-04 21:48 | XR ---
EXAMINATION TYPE: XR chest 2V DATE OF EXAM: 10/04/2019 COMPARISON: 03/05/2018 HISTORY: Palpitations TECHNIQUE: FINDINGS: Heart and mediastinum are normal. Lungs are clear. Diaphragm is normal. There are chest paz ds. Bony thorax appears normal. IMPRESSION: Normal chest. No change.
== END 2019-10-04 22:17 | disposition home or self-care (01) ==
LOC: EC 19:07
DX: R00.2 Palpitations (principal); R07.89 Other chest pain; R42 Dizziness and giddiness; Z88.1 Allergy status to other antibiotic agents; Z88.5 Allergy status to narcotic agent
CPT/HCPCS: 36415; 71046; 80053; 82550; 82553; 83735; 84100; 84439; 84443; 84481; 84484; 85025; 85610; 85730; 93005; 99285